=== PATIENT | male | born 1990 | race Caucasian/White ===

== ENCOUNTER 2019-02-02 11:30 | Emergency (ER) | payer OTHER ==
[2019-02-02] MEDS ORDERED: Ketorolac 30 MG/ML SDV IVPUSH ONE (12:08)
[2019-02-02] MEDS ORDERED: Metoclopramide 10 MG/2 ML SDV IVPUSH ONE (12:09)
[2019-02-02] MEDS ORDERED: diphenhydrAMINE 50 MG/ML SDV IVPUSH ONE (12:10)
--- NOTE | 2019-02-02 12:14 | EDM.PDOC ---
ED HPI GENERAL MEDICAL PROBLEM - General Chief Complaint: Headache Stated Complaint: HEAD PAIN AND PRESSURE Time Seen by Provider: 02/02/19 11:51 Source of Information: Reports: Patient History Limitations: Reports: No Limitations - History of Present Illness INITIAL COMMENTS - FREE TEXT/NARRATIVE: 28 yo male presents to ER with headache. Headache has been present for 5 days. He has been treating with benadryl and naproxen with some relief until yesterday. became nauseated with vomiting yesterday. Unable to tolerate oral fluids. He does not have a hx of migraines but does have seasonal allergies. generally healthy - Related Data Allergies Allergy/AdvReac Type Severity Reaction Status Date / Time ceftriaxone [From Rocephin] Allergy Hives Verified 02/02/19 11:49 Penicillins Allergy Hives Verified 02/02/19 11:49 vancomycin [From Vancocin] Allergy Hives Verified 02/02/19 11:49 Home Meds: Home Meds NK [No Known Home Meds] 02/02/19 [History] Past Medical History - Past Surgical History GI Surgical History: Reports: Hernia Repair/Other Social & Family History - Tobacco Use Smoking Status *Q: Current Every Day Smoker Years of Tobacco use: 8 Packs/Tins Daily: 0.5 ED ROS GENERAL - Review of Systems Review Of Systems: See Below Constitutional: Denies: Fever, Chills, Fatigue HEENT: Denies: Sinus Problem Respiratory: Denies: Shortness of Breath, Wheezing Cardiovascular: Denies: Chest Pain - Physical Exam Exam: See Below Exam Limited By: No Limitations General Appearance: Alert, WD/WN, No Apparent Distress Eye Exam: Bilateral Eye: Normal Inspection Ears: Normal External Exam, Normal Canal, Hearing Grossly Normal, Normal TMs Nose: Normal Inspection, Normal Mucosa, No Blood Throat/Mouth: Normal Teeth, Normal Gums, Normal Voice, No Airway Compromise, Other (dry mucous membranes) Head Exam: Atraumatic, Normocephalic Neck: Normal Inspection, Supple, Non-Tender Respiratory/Chest: No Respiratory Distress, Lungs Clear, Normal Breath Sounds, No Accessory Muscle Use, Chest Non-Tender Cardiovascular: Normal Peripheral Pulses, Regular Rate, Rhythm, No Edema, No Gallop, No Murmur GI/Abdominal: Normal Bowel Sounds, Soft, Non-Tender, No Organomegaly. No: Guarding, Tender Neuro Exam (Abbreviated): Alert, Oriented, CN II-XII Intact, Normal Cognition, Normal Gait, No Motor/Sensory Deficits Back Exam: Normal Inspection, Full Range of Motion Psychiatric: Normal Affect, Normal Mood Skin Exam: Warm, Dry, Intact Course - Vital Signs Last Recorded V/S: Last Vital Signs Temp 37.7 C 02/02/19 11:57 Pulse 87 02/02/19 11:57 Resp 12 02/02/19 11:57 BP 132/93 H 02/02/19 11:57 Pulse Ox 99 02/02/19 11:57 - Orders/Labs/Meds Orders: Active Orders 24 hr Category Date Time Status Sodium Chloride 0.9% [Normal Saline] 1,000 ml Med 02/02/19 12:15 Active IV ASDIRECTED Sodium Chloride 0.9% [Normal Saline] 1,000 ml Med 02/02/19 13:45 Active IV ASDIRECTED Medication Orders Sodium Chloride (Normal Saline) 1,000 mls @ 999 mls/hr IV ASDIRECTED NANCY Last Admin: 02/02/19 13:50 Dose: 999 mls/hr Infusion: 02/02/19 13:23 Dose: 999 mls/hr Admin: 02/02/19 12:22 Dose: 999 mls/hr Sodium Chloride (Normal Saline) 1,000 mls @ 125 mls/hr IV ASDIRECTED NANCY Last Admin: 02/02/19 13:50 Dose: 125 mls/hr Labs: Laboratory Tests 02/02/19 02/02/19 Range/Units 13:38 13:38 WBC 7.6 (4.5-11.0) K/uL RBC 4.78 (4.30-5.90) M/uL Hgb 14.2 (12.0-15.0) g/dL Hct 41.3 (40.0-54.0) % MCV 86 (80-98) fL MCH 30 (27-31) pg MCHC 34 (32-36) % Plt Count 178 (150-400) K/uL Neut % (Auto) 72 H (36-66) % Lymph % (Auto) 14 L (24-44) % [place] % (Auto) 12 H (2-6) % Eos % (Auto) 1 L (2-4) % Baso % (Auto) 0 (0-1) % Sodium 134 L (140-148) mmol/L Potassium 3.8 (3.6-5.2) mmol/L Chloride 97 L (100-108) mmol/L Carbon Dioxide 29 (21-32) mmol/L Anion Gap 11.8 (5.0-14.0) mmol/L BUN 14 (7-18) mg/dL Creatinine 1.1 (0.8-1.3) mg/dL Est Cr Clr Drug Dosing 124.94 mL/min Estimated GFR (MDRD) > 60 (>60) Glucose 116 H (74-106) mg/dL Calcium 8.3 L (8.5-10.1) mg/dL Total Bilirubin 0.6 (0.2-1.0) mg/dL AST 15 (15-37) U/L ALT 19 (12-78) U/L Alkaline Phosphatase 83 (46-116) U/L Total Protein 6.6 (6.4-8.2) g/dL Albumin 3.3 L (3.4-5.0) g/dL Globulin 3.3 (2.3-3.5) g/dL Albumin/Globulin Ratio 1.0 L (1.2-2.2) Meds: Medications Generic Name Dose Route Start Last Admin Trade Name Freq PRN Reason Stop Dose Admin Sodium Chloride 1,000 mls @ 999 mls/hr 02/02/19 12:15 02/02/19 13:50 Normal Saline IV 999 mls/hr ASDIRECTED NANCY Administration Sodium Chloride 1,000 mls @ 125 mls/hr 02/02/19 13:45 02/02/19 13:50 Normal Saline IV 125 mls/hr ASDIRECTED NANCY Administration Discontinued Medications Generic Name Dose Route Start Last Admin Trade Name Freq PRN Reason Stop Dose Admin Acetaminophen 1,000 mg 02/02/19 13:33 02/02/19 13:48 Tylenol Extra Strength PO 02/02/19 13:34 1,000 mg ONETIME ONE Administration Diphenhydramine HCl 50 mg 02/02/19 12:10 02/02/19 12:27 Benadryl IVPUSH 02/02/19 12:11 50 mg ONETIME ONE Administration Ketorolac Tromethamine 30 mg 02/02/19 12:08 02/02/19 12:26 Toradol IVPUSH 02/02/19 12:09 30 mg ONETIME ONE Administration Metoclopramide HCl 10 mg 02/02/19 12:09 02/02/19 12:27 Reglan IVPUSH 02/02/19 12:10 10 mg ONETIME ONE Administration - Radiology Interpretation CT Results Date: 02/02/19 (no acute abnormalities) Departure - Departure Time of Disposition: 14:27 Disposition: Home, Self-Care 01 Condition: Good 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, 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, Dehydration - Discharge Information *PRESCRIPTION DRUG MONITORING PROGRAM REVIEWED*: Not Applicable *COPY OF PRESCRIPTION DRUG MONITORING REPORT IN PATIENT CHEMA: Not Applicable Instructions: Lyme Disease Referrals: PCP,None [Primary Care Provider] - Forms: ED Department Discharge Additional Instructions: Doxycycline 100 mg twice daily for 14 days this will treat a tick borne illness and a sinus infections increase fluid intake with sips of fluid and sports drinks for electrolyte replacement if you are not markedly better in 48 hours follow-up with primary care provider - My Orders Last 24 Hours: My Active Orders 02/02/19 12:15 Sodium Chloride 0.9% [Normal Saline] 1,000 ml IV ASDIRECTED 02/02/19 13:45 Sodium Chloride 0.9% [Normal Saline] 1,000 ml IV ASDIRECTED - Assessment/Plan Last 24 Hours: My Active Orders 02/02/19 12:15 Sodium Chloride 0.9% [Normal Saline] 1,000 ml IV ASDIRECTED 02/02/19 13:45 Sodium Chloride 0.9% [Normal Saline] 1,000 ml IV ASDIRECTED
[2019-02-02] MEDS: Sodium Chloride 0.9% 1,000 ML IV SCH ×2 (12:22→13:50)
[2019-02-02] MEDS ORDERED: Acetaminophen 500 MG Tab PO ONE (13:33)
[2019-02-02] MEDS ORDERED: Sodium Chloride 0.9% 1,000 ML IV SCH (13:45)
--- NOTE | 2019-02-02 14:15 | CRLCT ---
INDICATION: Headache. TECHNIQUE: Multiple axial images were obtained through the brain without contrast. Coronal re-formatted were obtained. COMPARISON: None. FINDINGS: The ventricles and sulci are within normal limits. There is no mass effect or midline shift. There is no intracranial hemorrhage. The [place]-white matter differentiation is unremarkable. There is no fracture identified on bone windows. IMPRESSION: No acute intracranial abnormality. Dictated by Jose A Gaming MD @ 02/02/2019 2:13:58 PM Please note that all CT scans at this facility use dose modulation, iterative reconstruction, and/or weight-based dosing when appropriate to reduce radiation dose to as low as reasonably achievable. Dictated by: Jose A Gaming MD @ 02/02/2019 14:14:34 (Electronically Signed)
== END 2019-02-02 15:00 | disposition home or self-care (01) ==
LOC: JP.ED 11:30
DX: J32.9 Chronic sinusitis, unspecified (principal); A69.20 Lyme disease, unspecified; E86.0 Dehydration; F17.210 Nicotine dependence, cigarettes, uncomplicated; Z88.1 Allergy status to other antibiotic agents; Z88.0 Allergy status to penicillin
CPT/HCPCS: 36415; 70450; 80053; 85025; 96361; 96374; 96375; 99284; A9270; J1200; J1885; J2765; J7030

== ENCOUNTER 2019-02-15 22:18 | Emergency (ER) | payer OTHER ==
--- NOTE | 2019-02-15 23:03 | EDM.PDOC ---
ED HPI GENERAL MEDICAL PROBLEM - General Chief Complaint: Respiratory Problem Stated Complaint: TROUBLE BREATHING Time Seen by Provider: 02/15/19 22:50 Source of Information: Reports: Patient, Old Records, RN History Limitations: Reports: No Limitations - History of Present Illness INITIAL COMMENTS - FREE TEXT/NARRATIVE: 28 yo male presents with a respiratory complaint. Has a minimally productive cough. Some body aches. ? fever. Mostly clear nasal discharge. Is currently taking doxycycline for Lyme's Dz. Onset: Gradual Onset Date: 02/14/19 Duration: Day(s): (2), Getting Worse Location: Reports: Head, Face, Chest Quality: Reports: Ache (body) Severity: Moderate Improves with: Reports: None Worsens with: Reports: None Context: Reports: Other (see HPI) Associated Symptoms: Reports: Cough, Shortness of Breath (mild). 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) - Related Data Allergies Allergy/AdvReac Type Severity Reaction Status Date / Time ceftriaxone [From Rocephin] Allergy Hives Verified 02/15/19 22:35 Penicillins Allergy Hives Verified 02/15/19 22:35 vancomycin [From Vancocin] Allergy Hives Verified 02/15/19 22:35 Home Meds: Home Meds Doxycycline Hyclate 1 tab PO BID 02/15/19 [History] Past Medical History Respiratory History: Reports: Asthma - Infectious Disease History Infectious Disease History: Reports: None - Past Surgical History GI Surgical History: Reports: Hernia Repair/Other Social & Family History - Family History Family Medical History: Noncontributory - Tobacco Use Smoking Status *Q: Current Every Day Smoker Years of Tobacco use: 3 Packs/Tins Daily: 0.4 - Caffeine Use Caffeine Use: Reports: None - Recreational Drug Use Recreational Drug Use: No ED ROS GENERAL - Review of Systems Review Of Systems: See Below Constitutional: Reports: Chills, Malaise HEENT: Reports: Rhinitis Respiratory: Reports: Shortness of Breath (mild), Cough Cardiovascular: Reports: No Symptoms GI/Abdominal: Reports: No Symptoms : Reports: No Symptoms Musculoskeletal: Reports: No Symptoms Skin: Reports: No Symptoms Neurological: Reports: No Symptoms ED EXAM, GENERAL - Physical Exam Exam: See Below Exam Limited By: No Limitations General Appearance: Alert, WD/WN, No Apparent Distress Eye Exam: Bilateral Eye: Normal Fundi, Normal Inspection, PERRL Ears: Normal External Exam, Normal Canal, Hearing Grossly Normal, Normal TMs Ear Exam: Bilateral Ear: Auricle Normal, Canal Normal, TM normal Nose: Normal Inspection, Normal Mucosa, No Blood Throat/Mouth: Normal Inspection, Normal Lips, Normal Oropharynx, Normal Voice, No Airway Compromise Head: Atraumatic, Normocephalic Neck: Normal Inspection Respiratory/Chest: No Respiratory Distress, Lungs Clear, Normal Breath Sounds, No Accessory Muscle Use, Other (cough, dry) Cardiovascular: Regular Rate, Rhythm, No Edema Extremities: Normal Inspection Neurological: Alert, Oriented, CN II-XII Intact, Normal Cognition, No Motor/ Sensory Deficits Psychiatric: Normal Affect, Normal Mood Skin Exam: Warm, Dry, Intact, Normal Color, No Rash Course - Vital Signs Last Recorded V/S: Last Vital Signs Temp 36.4 C 02/15/19 22:37 Pulse 101 H 02/15/19 22:37 Resp 18 02/15/19 22:37 BP 132/95 H 02/15/19 22:37 Pulse Ox 95 02/15/19 22:37 - Orders/Labs/Meds Labs: Laboratory Tests 02/15/19 Range/Units 22:44 WBC 14.8 H (4.5-11.0) K/uL RBC 5.38 (4.30-5.90) M/uL Hgb 15.8 H (12.0-15.0) g/dL Hct 47.6 (40.0-54.0) % MCV 89 (80-98) fL MCH 29 (27-31) pg MCHC 33 (32-36) % Plt Count 355 (150-400) K/uL Meds: Medications Discontinued Medications Generic Name Dose Route Start Last Admin Trade Name Freq PRN Reason Stop Dose Admin Ibuprofen 600 mg 02/15/19 23:44 02/15/19 23:53 Motrin PO 02/15/19 23:45 600 mg ONETIME ONE Administration - Radiology Interpretation Free Text/Narrative:: CXR-neg Departure - Departure Time of Disposition: 00:27 Disposition: Home, Self-Care 01 Condition: Fair Clinical Impression: Viral respiratory illness - Discharge Information *PRESCRIPTION DRUG MONITORING PROGRAM REVIEWED*: No *COPY OF PRESCRIPTION DRUG MONITORING REPORT IN PATIENT CHEMA: No Instructions: Viral Respiratory Infection, [id number] Referrals: PCP,None [Primary Care Provider] - Forms: ED Department Discharge Additional Instructions: Take ibuprofen and/or acetaminophen as needed for pain or fever control. Drink ample fluids. Rest. Take Delsym or Robitussin DM as needed for cough. Recheck with your provider next week if not improving.
[2019-02-15] MEDS ORDERED: Ibuprofen 600 MG Tab PO ONE (23:44)
--- NOTE | 2019-02-16 00:27 | CRLCR ---
Indication: Cough. SOB Technique: Chest 2 views Comparison: None Findings/Impression: Cardiovascular and mediastinum: Heart size and vasculature are normal in caliber and appearance. Mediastinum is within normal limits. Lungs and pleural spaces: Lungs are clear. No sign of infiltrate or mass. No sign of pleural effusion. No pneumothorax. Bones and soft tissues: No significant findings. Dictated by Michael Talbert MD @ 02/16/2019 12:26:03 AM Dictated by: Michael Talbert MD @ 02/16/2019 00:26:10 (Electronically Signed)
== END 2019-02-16 00:35 | disposition home or self-care (01) ==
LOC: JP.ED 22:18
DX: J06.9 Acute upper respiratory infection, unspecified (principal); A69.20 Lyme disease, unspecified; F17.210 Nicotine dependence, cigarettes, uncomplicated; Z79.2 Long term (current) use of antibiotics; Z88.1 Allergy status to other antibiotic agents; Z88.0 Allergy status to penicillin
CPT/HCPCS: 36415; 71046; 85027; 99284; A9270; 99282

== ENCOUNTER 2020-04-15 16:09 | Emergency (ER) | payer SELFPAY ==
--- NOTE | 2020-04-15 16:45 | EDM.PDOC ---
ED HPI GENERAL MEDICAL PROBLEM - General Chief Complaint: Lower Extremity Injury/Pain Stated Complaint: L KNEE PAIN Time Seen by Provider: 04/15/20 16:40 Source of Information: Reports: Patient, RN History Limitations: Reports: No Limitations - History of Present Illness INITIAL COMMENTS - FREE TEXT/NARRATIVE: 29 yo male injured his L knee in a twisting motion 2 d ago. He has been walking with difficulty. No obvious swelling. Has not been seen before today. Feels like it will give out at times. 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) Left Knee Pain Score (Numeric/FACES): 8 - Related Data Allergies Allergy/AdvReac Type Severity Reaction Status Date / Time ceftriaxone [From Rocephin] Allergy Hives Verified 04/15/20 16:30 Penicillins Allergy Hives Verified 04/15/20 16:30 vancomycin [From Vancocin] Allergy Hives Verified 04/15/20 16:30 Home Meds: Home Meds NK [No Known Home Meds] 04/15/20 [History] Past Medical History HEENT History: Reports: Otitis Media Respiratory History: Reports: Asthma Musculoskeletal History: Reports: Fracture - Infectious Disease History Infectious Disease History: Reports: None - Past Surgical History HEENT Surgical History: Reports: Eye Surgery, Myringotomy w Tube(s) GI Surgical History: Reports: Hernia Repair/Other Social & Family History - Family History Family Medical History: Noncontributory - Tobacco Use Smoking Status *Q: Light Tobacco Smoker Years of Tobacco use: 6 Packs/Tins Daily: 0.3 - Caffeine Use Caffeine Use: Reports: Energy Drinks, Tea - Recreational Drug Use Recreational Drug Use: No Review of Systems - Review of Systems Review Of Systems: See Below Constitutional: Reports: No Symptoms Musculoskeletal: Reports: Joint Pain (L knee) Skin: Reports: No Symptoms Neurological: Reports: No Symptoms ED EXAM, GENERAL - Physical Exam Exam: See Below Exam Limited By: No Limitations General Appearance: Alert, WD/WN, No Apparent Distress Extremities: Normal Inspection, No Pedal Edema, Limited Range of Motion, Other (No apparent effusion, no ligamentous laxity, has pain with stressing both medial and lateral collateral ligaments. Has ant/lateral joint line pain. ). No: Normal Range of Motion, Non-Tender, Joint Swelling, Redness Neurological: Alert, Oriented, CN II-XII Intact, Normal Cognition, No Motor/Sensory Deficits Psychiatric: Normal Affect, Normal Mood Skin Exam: Warm, Dry, Intact, Normal Color, No Rash Course - Vital Signs Last Recorded V/S: Last Vital Signs Temp 37.1 C 04/15/20 16:27 Pulse 75 04/15/20 16:27 Resp 14 04/15/20 16:27 BP 158/96 H 04/15/20 16:27 Pulse Ox 99 04/15/20 16:27 - Orders/Labs/Meds Orders: Active Orders 24 hr Category Date Time Status Knee 3V Lt [CR] Stat Exams 04/15/20 16:44 Taken Meds: Medications Discontinued Medications Generic Name Dose Route Start Last Admin Trade Name Freq PRN Reason Stop Dose Admin Ketorolac Tromethamine 60 mg 04/15/20 16:56 04/15/20 17:16 Toradol IM 04/15/20 16:57 60 mg ONETIME ONE Administration - Radiology Interpretation Free Text/Narrative:: L knee X-ray-neg Departure - Departure Time of Disposition: 17:40 Disposition: Home, Self-Care 01 Condition: Fair Clinical Impression: Left knee injury Qualifiers: Encounter type: initial encounter Qualified Code(s): S89.92XA - Unspecified injury of left lower leg, initial encounter - Discharge Information *PRESCRIPTION DRUG MONITORING PROGRAM REVIEWED*: No *COPY OF PRESCRIPTION DRUG MONITORING REPORT IN PATIENT CHEMA: No Instructions: Knee Sprain, Adult, [id number], How to Use a Knee Immobilizer, [id number] Referrals: PCP,None [Primary Care Provider] - Forms: ED Department Discharge Additional Instructions: Use immobilizer except when bathing. Take ibuprofen 600 mg every 6 hrs with food for pain relief, next dose after 11 pm tonight. Add acetaminophen up to 1000 mg every 6 hrs for added relief. Someone will contact you tomorrow from the orthopedic clinic to schedule you an appt for further evaluation. Get established with a local primary care provider for routine care. Sepsis Event Note (ED) - Evaluation Sepsis Screening Result: No Definite Risk - Focused Exam Vital Signs: Vital Signs Temp Pulse Resp BP Pulse Ox 04/15/20 16:27 37.1 C 75 14 158/96 H 99 - My Orders Last 24 Hours: My Active Orders 04/15/20 16:44 Knee 3V Lt [CR] Stat - Assessment/Plan Last 24 Hours: My Active Orders 04/15/20 16:44 Knee 3V Lt [CR] Stat
[2020-04-15] MEDS ORDERED: Ketorolac 60 MG/2 ML SDV IM ONE (16:56)
--- NOTE | 2020-04-16 09:03 | CR ---
Knee 3V Lt CLINICAL HISTORY: Twisting injury FINDINGS: No acute fracture or dislocation is noted. There are no osseous lesions. Articular surfaces are smooth. Impression: Negative
== END 2020-04-15 18:28 | disposition home or self-care (01) ==
LOC: JP.ED 16:09
DX: S89.92XA Unspecified injury of left lower leg, initial encounter (principal); J45.909 Unspecified asthma, uncomplicated; F17.210 Nicotine dependence, cigarettes, uncomplicated; Z88.1 Allergy status to other antibiotic agents; Z88.0 Allergy status to penicillin; X50.1XXA Overexertion from prolonged static or awkward postures, initial encounter
CPT/HCPCS: 73562; 96372; 99283; J1885